=== PATIENT | female | born 1945 | race African-American/Black ===

== ENCOUNTER 2021-07-23 13:06 | Inpatient (IN) | payer MEDICARE ==
[~2021-07-23] VITALS: Ht 165.1 cm; Wt 90.7 kg
[2021-07-23 14:52] LABS: BASOPHILS % 0.6 % (0.0-2.0); EOSINOPHILS % 0.9 % (0.0-5.0); HEMATOCRIT. 39.1 % (36.0-48.0); HEMOGLOBIN. 12.8 g/dL (12.0-16.0); LYMPHOCYTES % 15.8 % (20.0-50.0); MEAN CORPUSCULAR HEMOGLOBIN 29.3 pg (28.0-32.0); MEAN CORPUSCULAR VOLUME 89.4 fL (81.0-99.0); MEAN PLATELET VOLUME 7.1 fl (7.4-10.4); MONOCYTES % 12.5 % (2.0-8.0); NEUTROPHILS % 70.2 % (40.0-76.0); PLATELET 246 x1000/uL (130-400); RED BLOOD CELL COUNT 4.37 mill/uL (4.2-5.4); RED CELL DISTRIBUTION WIDTH 14.8 % (11.6-14.6)
[2021-07-23 14:59] LABS: CHLORIDE 108 mEq/L (98-107)
[2021-07-23] MEDS ORDERED: FUROSEMIDE 40MG/4ML VIAL IVP ONE (18:45)
[2021-07-23 22:10] VITALS: BP 146/87
[2021-07-23 22:15] VITALS: BP 146/87
[2021-07-23] MEDS ORDERED: CLONIDINE 0.2MG TABLET PO PRN (23:15)
[2021-07-23] MEDS ORDERED: HYDROCODONE/ACETAMINOPHEN 5/325MG TABLET PO PRN (23:15)
[2021-07-23] MEDS ORDERED: ZOLPIDEM TARTRATE 5MG TABLET PO PRN (23:15)
[2021-07-23] MEDS ORDERED: ACETAMINOPHEN 325MG TABLET PO PRN (23:15)
[2021-07-23] MEDS ORDERED: NALOXONE HCL 0.4MG/ML VIAL IV PRN (23:30)
[2021-07-24] VITALS: BP 117/66
[2021-07-24] MEDS: SODIUM CHLORIDE 0.45% 1,000 ML IV SCH ×2 (00:43→15:31)
[2021-07-24 02:51] LABS: CREATINE KINASE 87 IU/L (26-192)
[2021-07-24 04:00] VITALS: BP 134/65
[2021-07-24 07:53] LABS: HEMOGLOBIN 12.9 g/dL (12.0-16.0); MEAN CORPUSCULAR HEMOGLOBIN 29.2 pg (28.0-32.0); MEAN CORPUSCULAR VOLUME 88.4 fL (81.0-99.0); PLATELET 252 x1000/uL (130-400); RED BLOOD CELL COUNT 4.41 mill/uL (4.2-5.4)
[2021-07-24 08:00] VITALS: BP 114/74
[2021-07-24 08:21] LABS: CHLORIDE 106 mEq/L (98-107)
[2021-07-24 08:29] LABS: CREATINE KINASE 93 IU/L (26-192)
[2021-07-24] MEDS ORDERED: POTASSIUM CHLORIDE 20MEQ TABLET SR PO NR (09:15)
[2021-07-24] MEDS ORDERED: ENOXAPARIN 100MG/ML SYR SUBCUT SCH (09:30)
[2021-07-24] MEDS: ASPIRIN 81MG EC TABLET PO SCH (09:37)
[2021-07-24] MEDS: CARVEDILOL 12.5MG TABLET PO SCH ×2 (09:38→21:54)
[2021-07-24] MEDS: ENOXAPARIN 100MG/ML SYR SUBCUT SCH ×2 (10:09→21:55)
[2021-07-24 11:21] LABS: T4 FREE 1.35 ng/dL (0.76-1.46)
[2021-07-24 12:00] VITALS: BP 112/62
[2021-07-24 16:00] VITALS: BP 117/66
[2021-07-24 16:47] LABS: D-DIMER 1.11 mg/L FEU (<0.50); INR 1.2
[2021-07-24 16:50] LABS: CREATINE KINASE 107 IU/L (26-192)
[2021-07-24 16:51] LABS: CREATINE KINASE MB FRACTION 1.3 ng/mL (0.5-3.6)
[2021-07-24 20:00] VITALS: BP_SYST 106; BP_SYST 121; BP_SYST 95; BP_DIAS 52; BP_DIAS 58; BP_DIAS 71
[2021-07-25] VITALS: BP 141/88
[2021-07-25 01:25] LABS: CREATINE KINASE MB FRACTION < 1.0 ng/mL (0.5-3.6)
[2021-07-25 04:00] VITALS: BP 122/53
[2021-07-25 08:00] VITALS: BP 132/73
[2021-07-25] MEDS: ENOXAPARIN 100MG/ML SYR SUBCUT SCH (09:17)
[2021-07-25] MEDS: CARVEDILOL 12.5MG TABLET PO SCH (09:17)
[2021-07-25] MEDS: ASPIRIN 81MG EC TABLET PO SCH (09:17)
[2021-07-25] MEDS: SODIUM CHLORIDE 0.45% 1,000 ML IV SCH (09:20)
[2021-07-25 09:48] LABS: BASOPHILS % 0.8 % (0.0-2.0); EOSINOPHILS % 3.3 % (0.0-5.0); HEMATOCRIT. 39.6 % (36.0-48.0); HEMOGLOBIN. 13.2 g/dL (12.0-16.0); MEAN CORPUSCULAR HEMOGLOBIN 29.7 pg (28.0-32.0); MEAN CORPUSCULAR VOLUME 89.1 fL (81.0-99.0); MEAN PLATELET VOLUME 7.4 fl (7.4-10.4); MONOCYTES % 12.9 % (2.0-8.0); PLATELET 268 x1000/uL (130-400); RED BLOOD CELL COUNT 4.44 mill/uL (4.2-5.4); RED CELL DISTRIBUTION WIDTH 15.1 % (11.6-14.6)
[2021-07-25 10:02] LABS: CHLORIDE 107 mEq/L (98-107)
[2021-07-25 10:25] LABS: CREATINE KINASE MB FRACTION < 1.0 ng/mL (0.5-3.6)
[2021-07-25 12:00] VITALS: BP 126/58
[2021-07-25 15:45] VITALS: BP 125/68
[2021-07-25 16:00] VITALS: BP 125/68
[2021-07-25] MEDS ORDERED: APIXABAN 5 MG TABLET PO SCH (17:00)
== END 2021-07-25 17:26 | disposition home health service (06) | DRG 73 ==
LOC: ER 13:06 → EDBEDREQ 18:51 → ENRESERV 20:19 → 8WST 22:08
PROVIDERS: ADMIT Internal Medicine; ATTEND Internal Medicine
DX: G90.8 Other disorders of autonomic nervous system (principal); G93.41 Metabolic encephalopathy; R65.10 Systemic inflammatory response syndrome (SIRS) of non-infectious origin without acute organ dysfunction; E86.0 Dehydration; I48.91 Unspecified atrial fibrillation; E87.6 Hypokalemia; I10 Essential (primary) hypertension; R55 Syncope and collapse; I25.10 Atherosclerotic heart disease of native coronary artery without angina pectoris; R26.81 Unsteadiness on feet; Z96.651 Presence of right artificial knee joint; R63.5 Abnormal weight gain; Z68.33 Body mass index [BMI] 33.0-33.9, adult; I25.2 Old myocardial infarction; Z86.73 Personal history of transient ischemic attack (TIA), and cerebral infarction without residual deficits
CPT/HCPCS: 36415; 71045; 80048; 80053; 80061; 82550; 82553; 83036; 83880; 84439; 84443; 84484; 85025; 85027; 85379; 93005; 93306; 93880; 93970; 97161; 99285; J1650; J1940; J7070